=== PATIENT | female | born 1970 | race Caucasian/White ===

== ENCOUNTER 2016-09-24 21:15 | Emergency (ER) | payer OTHER ==
[~2016-09-24] VITALS: Ht 157.5 cm; Wt 78.0 kg
[~2016-09-24 21:15] MED LIST: BUSP5TAB3 PO; DEPA500T PO; PSYCH MEDS; TRAZ100 PO
[2016-09-24 23:43] VITALS: BP 120/86; PULSE 67; RESP 20; TEMP 97.7; O2SAT 95
[2016-09-25 02:05] VITALS: BP 149/96; PULSE 70; RESP 20; TEMP 97.8; O2SAT 97
--- NOTE | 2016-09-25 03:12 | PD ---
HPI Chief Complaint: Respiratory Symptoms Time Seen by Provider: 03:04 Travel History International Travel<30 days: No Contact w/Intl Traveler<30days: No Traveled to known affect area: No History of Present Illness HPI The patient is a 46-year-old female with a history of COPD who is been coughing for 2 weeks, mostly nonproductive. She does have some shortness of breath as well as wheezing. She has some bilateral substernal or peristernal chest pain with her coughing. She used to smoke 2 packs a day now has cut down to one half pack a day. She denies any fever. She denies any hemoptysis. PFSH Past Medical History COPD: Yes Musculoskeletal: Yes (Chronic back pain) Respiratory: Yes (Bronchitis) Migraines: Yes Ulcer: Yes Tetanus Vaccination: < 5 Years Influenza Vaccination: No ?: Unknown LMP: Two weeks ago : 2 Para: 2 Past Surgical History Section: Yes Social History Alcohol Use: Yes (Occasional) Tobacco Use: Yes ("Quitting now") Substance Use: No Allergies-Medications (Allergen,Severity, Reaction): Coded Allergies: No Known Allergies (Verified , 09/25/16) Reported Meds & Prescriptions Reported Meds & Active Scripts Active Percocet (Oxycodone-Acetaminophen) 5-325 mg Tab 1 Tab PO Q6H PRN Review of Systems Except as stated in HPI: all other systems reviewed are Neg Physical Exam Narrative GENERAL: Well-nourished, well-developed patient in no respiratory distress. Her vital signs are normal. SKIN: Warm and dry. HEAD: Normocephalic. EYES: No scleral icterus. No injection or drainage. NECK: Supple, trachea midline. No JVD or lymphadenopathy. CARDIOVASCULAR: Regular rate and rhythm without murmurs, gallops, or rubs. RESPIRATORY: Breath sounds equal bilaterally. No accessory muscle use. Bilateral wheezes are heard in all lung keene but these are widely scattered. The patient has to somewhat forcefully two-year the wheezes. A few rhonchi are present. GASTROINTESTINAL: Abdomen soft, non-tender, nondistended. No guarding or rebound is present. MUSCULOSKELETAL: No cyanosis, or edema. BACK: Nontender without obvious deformity. No CVA tenderness. Data Data Last Documented VS Vital Signs Date Time Temp Pulse Resp B/P Pulse Ox O2 Delivery O2 Flow Rate FiO2 09/25/16 03:34 96 09/25/16 02:10 20 Room Air 09/25/16 02:05 97.8 70 149/96 Orders Influenzae A/B Antigen (09/25/16 03:12) Ecg Monitoring (09/25/16 03:12) Oximetry (09/25/16 03:12) Oxygen Administration (09/25/16 03:12) Chest, Pa & Lat (09/25/16 03:12) Albuterol-Ipratropium Neb (Duoneb Neb) (09/25/16 03:15) Prednisone (Deltasone) (09/25/16 03:15) MDM Medical Decision Making Medical Screen Exam Complete: Yes Emergency Medical Condition: Yes Medical Record Reviewed: Yes Differential Diagnosis COPD with acute exacerbation, bronchitis, pneumonia, pulmonary embolushighly unlikely Narrative Course The patient wants to go home, she does not want a chest x-ray. She states she just wants an antibiotic and an inhaler and some medications for her COPD like steroids. Impression: COPD with acute exacerbation Plan: The patient will be given an albuterol HFA, prescription for Zithromax and a tapered course of prednisone. She should follow-up with a primary care physician. Diagnosis Primary Impression: COPD with acute exacerbation Additional Instructions: Discontinue smoking completely. When you are sick it makes it a little easier to quit smoking. The prednisone is taken one tablet twice daily for 4 days followed by one tablet once daily for 4 days. The Zithromax is one tablet daily for 5 days. Med/Other Pt SpecificInfo: Prescription(s) given Scripts Prednisone 50 Mg Tab50 Mg PO BID #12 TAB Ref 0 Prov:Vern Singh MD 09/25/16 Azithromycin (Zithromax)500 Mg [id number] Mg PO DAILY 5 Days Ref 0 Prov:Vern Singh MD 09/25/16 Albuterol 8.5 GM Inh (Proair Hfa 8.5 GM Inh)90 Mcg/Act Aer2 Puff INH Q4-6H PRN ( SHORTNESS OF BREATH) #1 INHALER Ref 0 108 mcg/actuation Prov:Vern Singh MD 09/25/16 Oxycodone-Acetaminophen (Percocet)5-325 mg Tab1 Tab PO Q6H PRN (PAIN) #21 TAB Ref 0 Prov:Vern Singh MD 09/25/16 Disposition: 01 DISCHARGE HOME Condition: Stable Vern Singh MD Sep 25, 2016 03:12
[2016-09-25] MEDS ORDERED: PERC5TAB12 PO (03:14)
[2016-09-25] MEDS ORDERED: predniSONE 20 MG TAB PO ONE (03:15)
[2016-09-25] MEDS: RESP: ALBUTEROL 2.5 MG/IPRATROPIUM 0.5 MG NEB (SCH) INH (03:17)
[2016-09-25 03:34] VITALS: O2SAT 96
[2016-09-25 03:35] VITALS: O2SAT 95
[2016-09-25] MEDS ORDERED: ZITH500T PO (03:47)
[2016-09-25] MEDS ORDERED: PRED50 PO (03:47)
[2016-09-25] MEDS ORDERED: ALBUAER3 INH (03:47)
[2016-09-25 04:11] VITALS: BP 121/72
== END 2016-09-25 04:22 | disposition home or self-care (01) ==
LOC: PHED 21:15
DX: J44.1 Chronic obstructive pulmonary disease with (acute) exacerbation (principal); F17.210 Nicotine dependence, cigarettes, uncomplicated
CPT/HCPCS: 87804; 94640; 94664; 99283; J7512

== ENCOUNTER 2016-11-24 12:23 | Emergency (ER) | payer OTHER ==
[~2016-11-24] VITALS: Ht 157.5 cm; Wt 75.3 kg
[~2016-11-24 12:23] MED LIST changes: +ALBUAER3 INH; -BUSP5TAB3 PO; -DEPA500T PO; +PERC5TAB12 PO; +PRED50 PO; -PSYCH MEDS; -TRAZ100 PO; +ZITH500T PO
[2016-11-24 12:31] VITALS: BP 145/82; PULSE 93; RESP 18; TEMP 97.8; O2SAT 97
--- NOTE | 2016-11-24 13:02 | PD ---
HPI Chief Complaint: Respiratory Symptoms Time Seen by Provider: 12:59 Travel History International Travel<30 days: No Contact w/Intl Traveler<30days: No Traveled to known affect area: No History of Present Illness HPI 46-year-old female with history of COPD presents to the ED for 7 day history of shortness of breath, worsened nonproductive cough. She denies fever or chills, ear pain, dull hearing, rhinorrhea, sore throat, chest pain, abdominal pain, nausea or vomiting. She endorses compliance with her daily inhalers. She is a current smoker. PFSH Past Medical History COPD: Yes GERD: Yes Medical other: Yes (hh) Musculoskeletal: Yes (Chronic back pain) Respiratory: Yes (copd) Migraines: Yes Ulcer: Yes Tetanus Vaccination: Unknown Influenza Vaccination: Yes ?: Not LMP: 3 months ago pre menapause : 2 Para: 2 Past Surgical History Section: Yes Social History Alcohol Use: Yes (Occasional) Tobacco Use: No (1/2 ppd) Substance Use: No Allergies-Medications (Allergen,Severity, Reaction): Coded Allergies: No Known Allergies (Verified , 11/24/16) Reported Meds & Prescriptions Reported Meds & Active Scripts Active Azithromycin 250 Mg Tab 250 Mg PO DIRECTED Take 2 tabs (500 mg) on day 1 then 1 tab daily x 4 days. Prednisone 20 Mg Tab 40 Mg PO DAILY Take 40 mg (2 tablets) daily for 5 days Proair Hfa 8.5 GM Inh (Albuterol Sulfate) 90 Mcg/Act Aer 2 Puff INH Q4-6H PRN 108 mcg/actuation Percocet (Oxycodone-Acetaminophen) 5-325 mg Tab 1 Tab PO Q6H PRN Review of Systems Except as stated in HPI: all other systems reviewed are Neg Physical Exam Narrative GENERAL: Well-nourished, well-developed nontoxic appearing white female. In short sentences. SKIN: Focused skin assessment warm/dry. HEAD: Normocephalic. EYES: No scleral icterus. No injection or drainage. ENT: Pearly licea tympanic membranes bilaterally. Oropharynx without erythema, edema or exudate. NECK: Supple, trachea midline. No JVD or lymphadenopathy. CARDIOVASCULAR: Regular rate and rhythm without murmurs, gallops, or rubs. RESPIRATORY: Breath sounds equal neurologically bilaterally. No accessory muscle use. No rales, rhonchi or wheezes. GASTROINTESTINAL: Abdomen soft, non-tender, nondistended. MUSCULOSKELETAL: No cyanosis, or edema. Patient is ambulatory and walks with a normal gait. BACK: Nontender without obvious deformity. No CVA tenderness. Data Data Last Documented VS Vital Signs Date Time Temp Pulse Resp B/P Pulse Ox O2 Delivery O2 Flow Rate FiO2 11/24/16 13:00 20 11/24/16 12:31 97.8 93 145/82 97 Orders Albuterol-Ipratropium Neb (Duoneb Neb) (11/24/16 13:15) Dexamethasone Inj (Decadron Inj) (11/24/16 13:15) [facility] Medical Decision Making Medical Screen Exam Complete: Yes Emergency Medical Condition: Yes Differential Diagnosis COPD exacerbation versus bronchitis versus seasonal allergies versus cough versus other Narrative Course 46-year-old female with history of COPD presents to the ED for 7 day history of shortness of breath, worsened nonproductive cough. She denies fever or chills, ear pain, dull hearing, rhinorrhea, sore throat, chest pain, abdominal pain, nausea or vomiting. She endorses compliance with her daily inhalers. She is a current smoker. Vitals reviewed. Physical exam of a nontoxic-appearing white female in no acute distress. Breath sounds are tight but the physical exam is otherwise unremarkable. She is administered IM dexamethasone and 2 nebs 3. Recheck reveals improvement of breath sounds as well as subjective improvement. Patient was prescribed a Z-Donald and a short course of steroids. She is instructed to take the medication as prescribed, follow up with her primary care provider. She indicated understanding of the instructions and is agreeable to the care plan. The patient is stable and discharged home. Diagnosis Primary Impression: COPD exacerbation Referrals: Primary Care Physician Patient Instructions: COPD (Chronic Obstructive Pulmonary Disease) (ED), General Instructions, Nutrition Guidelines for People with COPD (ED) Additional Instructions: Rest, hydrate. Stop smoking. Take prednisone 40 mg 5 days. Azithromycin as prescribed. Follow-up with the primary care provider. Return to the ED for any urgent or emergent medical condition. Med/Other Pt SpecificInfo: Prescription(s) given Scripts Azithromycin 250 Mg Fos287 Mg PO DIRECTED #6 TAB Ref 0 Take 2 tabs (500 mg) on day 1 then 1 tab daily x 4 days. Prov:Lazaro Mcdonough MD 11/24/16 Prednisone 20 Mg Tab40 Mg PO DAILY #10 TAB Ref 0 Take 40 mg (2 tablets) daily for 5 days Prov:Lazaro Mcdonough MD 11/24/16 Disposition: 01 DISCHARGE HOME Condition: Stable Hetal Patricio Nov 24, 2016 13:02
[2016-11-24] MEDS ORDERED: DEXAMETHASONE SOD PHOS 4 MG/ML VIAL IM ONE (13:15)
[2016-11-24] MEDS: RESP: ALBUTEROL 2.5 MG/IPRATROPIUM 0.5 MG NEB (SCH) INH ×2 (13:18→13:20)
[2016-11-24] MEDS ORDERED: PRED20 PO (13:36)
[2016-11-24] MEDS ORDERED: AZIT250T3 PO (13:36)
== END 2016-11-24 14:13 | disposition home or self-care (01) ==
LOC: PHEFT 12:23
DX: J44.1 Chronic obstructive pulmonary disease with (acute) exacerbation (principal)
CPT/HCPCS: 94640; 94664; 96372; 99284; J1100